=== PATIENT | female | born 1965 | race Caucasian/White ===

== ENCOUNTER → 2017-08-19 | Day surgery (SDC) | payer OTHER | END | disposition home or self-care (01) | LOC: FRADUS-SUR 12:56 | PROVIDERS: ATTEND Surgery Surgical Oncology | PROC: 0HBU3ZX Excision of Left Breast, Percutaneous Approach, Diagnostic (ICD-10-PCS; principal; 2017-08-19) | DX: N63.20 Unspecified lump in the left breast, unspecified quadrant (principal); Z53.8 Procedure and treatment not carried out for other reasons | CPT/HCPCS: 76642-TC-LT ==